=== PATIENT | female | born 1965 | race Caucasian/White ===

== ENCOUNTER 2021-01-29 06:28 | Day surgery (SDC) | payer MEDICAID ==
[2021-01-29] MEDS ORDERED: Sodium Chloride 0.9% 1,000 ML IV SCH (07:00)
[2021-01-29] MEDS ORDERED: Midazolam 1 MG/ML 2 ML SDV ONE (07:14)
[2021-01-29] MEDS ORDERED: Propofol 200 MG/20 ML SDV ONE (07:14)
[2021-01-29] MEDS ORDERED: fentaNYL 100 MCG/2 ML SDV ONE (07:14)
--- NOTE | 2021-01-29 11:38 | OR ---
DATE OF PROCEDURE: 01/29/2021 SURGEON: Ubaldo Coon MD PROCEDURE: Colonoscopy. FINDINGS: 1. Diverticulosis, mild to moderate, mostly concentrated to sigmoid colon, but throughout the entire colon. 2. No other gross abnormalities. COMPLICATIONS: None. CSO: None. ANESTHETIC: MAC. PREOPERATIVE DIAGNOSIS: Family history of colorectal cancer. POSTOPERATIVE DIAGNOSIS: Family history of colorectal cancer. RISKS: Risks, benefits, alternatives, and limitations including, but not limited to, infection, bleeding, perforation, false positives, false negatives were explained to the patient, who wished to proceed. DESCRIPTION OF PROCEDURE: The patient was placed in left lateral decubitus position. Digital rectal exam was performed without abnormality. Scope was introduced and advanced atraumatically to the ileocecal valve. A photo was taken of the appendiceal orifice. Scope was brought back to the ascending, transverse, descending colon, and retroflexed. No evidence of old or new blood. No masses. No polyps. Diverticulosis described as above without evidence of diverticulitis or bleeding. No colitis. No abnormalities on retroflexion. Greater than 8 minutes was spent removing the scope. Prep was acceptable. Approximately 95% luminal surface could be seen. The patient tolerated procedure well. Ubaldo Coon MD /[id number]
== END 2021-01-29 09:19 | disposition home or self-care (01) ==
LOC: JP.SDS 06:28
PROVIDERS: ATTEND Surgery
DX: Z12.11 Encounter for screening for malignant neoplasm of colon (principal); Z80.0 Family history of malignant neoplasm of digestive organs; K57.30 Diverticulosis of large intestine without perforation or abscess without bleeding
CPT/HCPCS: 45378; J2250; J2704; J3010; J7030